=== PATIENT | male | born 1940 | race Caucasian/White ===

== ENCOUNTER 2019-06-30 10:35 | Outpatient (RCR) | payer MEDICARE, SELFPAY ==
[2019-04-06 10:31] LABS: INR 3.5; Prothrombin Time 36.4 Seconds (9.64-11.0)
[2019-04-26 11:46] LABS: INR 2.4; Prothrombin Time 25.1 Seconds (9.64-11.0)
[2019-05-28 10:17] LABS: INR 3.1; Prothrombin Time 32.6 Seconds (9.64-11.0)
[2019-06-30 10:53] LABS: INR 2.5; Prothrombin Time 24.8 Seconds (9.64-11.0)
== END 2019-07-05 23:59 | disposition home or self-care (01) ==
LOC: CHSLAB 10:35
PROVIDERS: PCP Internal Medicine; Visit Provider Internal Medicine
DX: I48.20 Chronic atrial fibrillation, unspecified (principal)
CPT/HCPCS: 36415; 85610

== ENCOUNTER 2019-07-30 09:23 | Outpatient (CLI) | payer MEDICARE, SELFPAY ==
[2019-07-30 09:37] LABS: Basophils Absolute Auto 0.01 K/mm3 (0.00-0.10); Basophils Percent Auto 0.2 % (0.0-1.0); Eosinophils Absolute Auto 0.13 K/mm3 (0.02-0.50); Eosinophils Percent Auto 2.6 % (1.0-6.0); Hematocrit 32.9 % (37.0-46.0); Hemoglobin 10.4 g/dL (12.4-15.3); Immature Granulocyte Absolute 0.06 K/mm3 (0.00-0.00); Immature Granulocyte Percent A 1.2 % (0.0-0.0); Lymphocytes Absolute Auto 0.66 K/mm3 (1.10-4.50); Lymphocytes Percent Auto 13.4 % (18.0-42.0); Mean Corpuscular HGB Conc 31.6 g/dL (32.0-36.0); Mean Corpuscular Hemoglobin 27.1 pg (27.0-31.0); Mean Corpuscular Volume 85.7 fL (78.0-102.0); Mean Platelet Volume 9.5 fl (8.7-11.0); Monocytes Absolute Auto 0.48 K/mm3 (0.10-0.90); Monocytes Percent Auto 9.7 % (2.0-11.0); Neutrophils Absolute Auto 3.6 K/mm3 (1.7-7.2); Neutrophils Percent Auto 72.9 % (50.0-70.0); Platelet Count Result 192 K/mm3 (150-420); Red Blood Count 3.84 M/mm3 (4.70-6.10); Red Cell Distribution Width 14.7 % (11.6-14.4); White Blood Count 4.9 K/mm3 (4.8-10.8)
[2019-07-30 09:45] LABS: INR 2.4; Prothrombin Time 23.7 Seconds (9.64-11.0)
[2019-07-30 09:52] LABS: Appearance Urine Clear (Clear); Bilirubin Urine Negative (Negative); Color Urine Yellow (Yellow); Glucose Urine UA Negative (Negative); Ketones Urine Negative (Negative); Leukocyte Esterase Ur Negative (Negative); Nitrate Urine Negative (Negative); Protein Urine Negative (Negative); Specific Grav Ur 1.025 (1.010-1.020); Urobilinogen Urine 0.2 mg/dL (0.2-1.0)
[2019-07-30 09:53] LABS: Hemoglobin A1C 8.4 % (<5.7)
[2019-07-30 10:02] LABS: Add Urine Microscopic? YES; Blood Urine Trace-Intact (Negative); RBC Urine 0-2 /hpf (0-2); Squamous Epithelial Cell Urine Occasional /hpf (Few); WBC Urine 0-3 /hpf (0-3)
[2019-07-30 10:03] LABS: Bacteria Urine 1+ /hpf; Mucus Urine Few /lpf
[2019-07-30 10:15] LABS: Alanine Aminotransferase 24 U/L (16-63); Albumin Level 3.6 g/dL (3.4-5.0); Alkaline Phosphatase 50 U/L (46-116); Anion Gap 10.3 mmol/L (7-16); Aspartate Amino Transferase 17 U/L (15-37); Bilirubin,Total 0.4 mg/dL (0.00-1.00); Blood Urea Nitrogen 18 mg/dL (7-18); Calcium 8.6 mg/dL (8.5-10.1); Carbon Dioxide 29 mmol/L (21-32); Chloride 104 mmol/L (98-108); Cholesterol 124 mg/dL (0-200); Estimated Glomerular Filt Rate > 60; Glucose 142 mg/dL (70-99); HDL Direct 46 mg/dL (40-60); LDL Cholesterol Calculated 55 mg/dL (<130); Osmolality Calculated 291 mOsm/kg (285-295); Potassium 4.3 mmol/L (3.5-5.1); Sodium 139 mmol/L (136-145); Thyroid Stimulating Hormone 1.95 uIU/mL (0.36-3.74); Triglycerides 114 mg/dL (0-150)
[2019-07-30 15:13] LABS: Ferritin 30 ng/mL (26-388); Iron 30 ug/dL (65-175); Lactate Dehydrogenase 147 U/L (85-227); Percent Iron Saturation 8 % (12-57)
[2019-08-02 08:43] LABS: Methylmalonic Acid 210 nmol/L (87-318)
[2019-08-03 06:13] LABS: Red Blood Cell Folate >1000 ng/mL RBC (>280)
== END 2019-07-30 09:24 | disposition home or self-care (01) ==
LOC: CHSLAB 09:25
PROVIDERS: PCP Internal Medicine; Visit Provider Internal Medicine
DX: I50.9 Heart failure, unspecified (principal); Z79.01 Long term (current) use of anticoagulants; E11.9 Type 2 diabetes mellitus without complications
CPT/HCPCS: 36415; 80053; 80061; 81001; 82728; 82747; 83036; 83540; 83550; 83615; 83921; 84443; 85025; 85610

== ENCOUNTER 2020-01-21 10:39 | Outpatient (RCR) | payer MEDICARE, SELFPAY ==
[2019-12-14 09:17] LABS: INR 3.7; Prothrombin Time 36.3 Seconds (9.64-11.0)
[2020-01-21 11:09] LABS: Prothrombin Time 69.1 Seconds (9.64-11.0)
[2020-01-21 11:14] LABS: INR 7.2
== END 2020-03-13 23:59 | disposition home or self-care (01) ==
LOC: CHSLAB 10:39
PROVIDERS: PCP Internal Medicine; Visit Provider Internal Medicine
DX: Z79.01 Long term (current) use of anticoagulants (principal)
CPT/HCPCS: 36415; 85610

== ENCOUNTER 2020-02-07 09:15 | Outpatient (CLI) | payer MEDICARE, SELFPAY ==
[2020-02-07 09:52] LABS: INR 3.2; Prothrombin Time 32.1 Seconds (9.64-11.0)
== END 2020-02-07 09:16 | disposition home or self-care (01) ==
LOC: CHSLAB 09:18
PROVIDERS: PCP Internal Medicine; Visit Provider Internal Medicine
DX: Z79.01 Long term (current) use of anticoagulants (principal)
CPT/HCPCS: 36415; 85610

== ENCOUNTER 2020-03-07 09:18 | Outpatient (CLI) | payer MEDICARE, SELFPAY ==
[2020-03-07 09:29] LABS: Basophils Absolute Auto 0.02 K/mm3 (0.00-0.10); Basophils Percent Auto 0.4 % (0.0-1.0); Eosinophils Absolute Auto 0.17 K/mm3 (0.02-0.50); Eosinophils Percent Auto 3.4 % (1.0-6.0); Hematocrit 31.3 % (37.0-46.0); Hemoglobin 9.4 g/dL (12.4-15.3); Immature Granulocyte Absolute 0.04 K/mm3 (0.00-0.00); Immature Granulocyte Percent A 0.8 % (0.0-0.0); Lymphocytes Absolute Auto 0.66 K/mm3 (1.10-4.50); Lymphocytes Percent Auto 13.3 % (18.0-42.0); Mean Corpuscular Hemoglobin 25.9 pg (27.0-31.0); Mean Corpuscular Volume 86.2 fL (78.0-102.0); Mean Platelet Volume 9.2 fl (8.7-11.0); Monocytes Absolute Auto 0.55 K/mm3 (0.10-0.90); Monocytes Percent Auto 11.1 % (2.0-11.0); Neutrophils Absolute Auto 3.5 K/mm3 (1.7-7.2); Platelet Count Result 185 K/mm3 (150-420); Red Blood Count 3.63 M/mm3 (4.70-6.10); Red Cell Distribution Width 15.3 % (11.6-14.4)
[2020-03-07 09:40] LABS: INR 2.7; Prothrombin Time 26.8 Seconds (9.64-11.0)
[2020-03-07 09:58] LABS: Hemoglobin A1C 7.7 % (<5.7)
[2020-03-07 10:34] LABS: Alanine Aminotransferase 23 U/L (16-63); Albumin Level 3.4 g/dL (3.4-5.0); Alkaline Phosphatase 60 U/L (46-116); Anion Gap 7 mmol/L (8-16); Aspartate Amino Transferase 15 U/L (15-37); Bilirubin,Total 0.4 mg/dL (0.00-1.00); Blood Urea Nitrogen 20 mg/dL (7-18); Calcium 8.5 mg/dL (8.5-10.1); Carbon Dioxide 29 mmol/L (21-32); Chloride 104 mmol/L (98-108); Estimated Glomerular Filt Rate > 60; Glucose 134 mg/dL (70-99); Osmolality Calculated 294 mOsm/kg (285-295); Potassium 4.4 mmol/L (3.5-5.1); Sodium 140 mmol/L (136-145); Total Protein 6.7 g/dL (6.4-8.2)
== END 2020-03-07 09:19 | disposition home or self-care (01) ==
LOC: CHSLAB 09:20
PROVIDERS: PCP Internal Medicine; Visit Provider Internal Medicine
DX: I48.91 Unspecified atrial fibrillation (principal); E11.9 Type 2 diabetes mellitus without complications; I10 Essential (primary) hypertension
CPT/HCPCS: 36415; 80053; 83036; 85025; 85610

== ENCOUNTER 2020-04-14 08:37 | Outpatient (CLI) | payer MEDICARE, SELFPAY ==
[2020-04-14 08:56] LABS: Basophils Absolute Auto 0.02 K/mm3 (0.00-0.10); Basophils Percent Auto 0.5 % (0.0-1.0); Eosinophils Absolute Auto 0.16 K/mm3 (0.02-0.50); Eosinophils Percent Auto 3.6 % (1.0-6.0); Hematocrit 31.7 % (37.0-46.0); Hemoglobin 9.5 g/dL (12.4-15.3); Immature Granulocyte Absolute 0.05 K/mm3 (0.00-0.00); Immature Granulocyte Percent A 1.1 % (0.0-0.0); Immature Reticulocyte Fraction 14.4 % (2.0-16.52); Lymphocytes Absolute Auto 0.63 K/mm3 (1.10-4.50); Lymphocytes Percent Auto 14.2 % (18.0-42.0); Mean Corpuscular Hemoglobin 25.5 pg (27.0-31.0); Monocytes Absolute Auto 0.39 K/mm3 (0.10-0.90); Monocytes Percent Auto 8.8 % (2.0-11.0); Neutrophils Absolute Auto 3.2 K/mm3 (1.7-7.2); Neutrophils Percent Auto 71.8 % (50.0-70.0); Platelet Count Result 198 K/mm3 (150-420); Red Blood Count 3.73 M/mm3 (4.70-6.10); Red Cell Distribution Width 15.6 % (11.6-14.4); Reticulocyte Hemoglobin Conten 29.8 pg (28.0-35.0); Reticulocyte Percent 1.24 % (0.50-1.50); Reticulocytes Absolute 0.05 M/mm3 (0.02-0.1); White Blood Count 4.4 K/mm3 (4.8-10.8)
[2020-04-14 09:08] LABS: INR 2.9; Partial Thromboplastin Time 39.4 SEC (22.3-31.6); Prothrombin Time 28.6 Seconds (9.64-11.0)
[2020-04-14 09:43] LABS: Ferritin 19 ng/mL (26-388); Iron 27 ug/dL (65-175); Percent Iron Saturation 8 % (12-57)
== END 2020-04-14 08:38 | disposition home or self-care (01) ==
LOC: CHSLAB 08:40
PROVIDERS: PCP Internal Medicine; Visit Provider Internal Medicine
DX: D64.9 Anemia, unspecified (principal); Z79.01 Long term (current) use of anticoagulants
CPT/HCPCS: 36415; 82728; 83540; 83550; 85025; 85046; 85610; 85730

== ENCOUNTER 2020-06-05 00:37 | Outpatient (CLI) | payer MEDICARE, SELFPAY ==
[2020-06-05 19:06] LABS: SARS-CoV-2 RNA PCR Negative
== END 2020-06-05 00:38 | disposition home or self-care (01) ==
LOC: ANHCOVIDDT 00:37
PROVIDERS: PCP Internal Medicine; Visit Provider Surgery
DX: Z01.812 Encounter for preprocedural laboratory examination (principal); Z20.822 Contact with and (suspected) exposure to COVID-19
CPT/HCPCS: C9803; U0003

== ENCOUNTER 2020-06-08 00:51 | Day surgery (SDC) | payer MEDICARE, SELFPAY ==
[2020-05-31 11:06] VITALS: BMI 32.5
[2020-06-08] MEDS: LACTATED RINGERS 1,000 ML 150 ML IV CONT (07:37)
[2020-06-08 07:45] VITALS: BP 132/61; PULSE 93; RESP 17; TEMP 36.5; O2SAT 98; BMI 32.1
[2020-06-08 07:45] LABS: Glucose Point of Care 145 (65-105)
[2020-06-08 07:52] LABS: Prothrombin Time 14.2 Seconds (11.1-14.7)
[2020-06-08 07:53] LABS: Partial Thromboplastin Time 28.3 SECONDS (22.3-36.8)
--- NOTE | 2020-06-08 08:10 | WPDANESEPPF ---
Anes - Initial Pre Proc Eval Procedure: Operation Date: 06/08/20 08:30 Proposed Procedures p Colonoscopy - Jay Coughlin DO Date/Time: 06/08/20 08:10 Surgeon: Jay Coughlin DO Pre Op Diagnosis: anemia Patient Data Age: 80 Gender: M Height: 5 ft 9 in Weight: 98.9 kg Last Vital Signs Temp 97.7 F 06/08/20 07:45 Pulse 93 06/08/20 07:45 Resp 17 06/08/20 07:45 BP 132/61 06/08/20 07:45 Pulse Ox 98 06/08/20 07:45 Allergies Allergy/AdvReac Type Severity Reaction Status Date / Time No Known Allergies Allergy Verified 05/31/20 11:06 Home Medications Medication Instructions Recorded Confirmed Type lisinopril 10 mg PO HS 05/31/20 06/08/20 History metformin 1,000 mg PO BID 05/31/20 06/08/20 History omeprazole 40 mg PO HS 05/31/20 06/08/20 History pravastatin 40 mg PO HS 05/31/20 06/08/20 History terazosin 4 mg PO HS 05/31/20 06/08/20 History warfarin 1 mg PO QPM 05/31/20 06/08/20 History warfarin 5 mg PO QPM 05/31/20 06/08/20 History Laboratory Tests 06/08/20 06/08/20 07:36 07:38 PT 14.2 Seconds Seconds (11.1-14.7) INR 1.0 APTT 28.3 SECONDS SECONDS (22.3-36.8) POC Capillary Glucose 145 mg/dl H mg/dl (65-105) Patient hx anesthesia problems: none Family hx anesthesia problems: none [facility] Past Medical History Medical History (Updated 06/08/20 @ 08:10 by Korey Ding MD) Diabetes GERD (gastroesophageal reflux disease) Hyperlipidemia Hypertension Social History Social History Smoking packs per day: 1 Smoking cigarettes per day: 20.0 Years smoked: 20 Smoking pack-years: 20.00 Smoking status: Heavy tobacco smoker Tobacco type: cigarettes Alcohol intake: never Substance use: never Substance use type: does not use Spiritual care concerns: No Anes - Eval Final PreProcedure Day of Procedure 06/08/20 08:10 Patient weight: obese Heart: regular rate and rhythm Lungs: clear to auscultation Airway: Mallampati scale Neurological: alert and oriented Last oral intake: >/= 8 hours ASA classification: III Emergent: no Anesthetic plan: proceed Anesthesia type and monitoring: general GIVS and standard monitoring Informed Consent: The patient's anesthetic plan and its attendant risks and benefits were discussed with the patient/family/POA. Questions were solicited and answers provided to the satisfaction of the patient/family/POA.
--- NOTE | 2020-06-08 08:19 | PM.IMHP ---
H&P: HPI History of Present Illness Date/Time: 06/08/20 08:19 Chief Complaint: anemia Narrative: Cayden Scott is a 80 year old male who presents for colonoscopy. He has never had one before. He is anemic but doesn't notice hematochezia or melena. Denies wt loss. He thinks his brother had colon cancer in his 60s. Review of Systems Review of Systems: All systems reviewed & are unremarkable except as noted in HPI and below Constitutional: Constitutional: Denies chills, Denies fever(s), Denies headache(s) and Denies weight loss Eyes: Eyes: Denies change in vision ENT: Denies dizziness, Denies headache(s), Denies neck mass and Denies throat swelling Cardiovascular: Cardiovascular: Denies chest pain, Denies lightheadedness and Denies dyspnea Respiratory: Respiratory: Denies cough, Denies dyspnea and Denies wheezing Gastrointestinal: Gastrointestinal: Denies abdominal pain, Denies change in bowel habits, Denies nausea and Denies vomiting Genitourinary: Genitourinary: Denies hematuria and Denies dysuria Musculoskeletal: Musculoskeletal: Reports as per HPI Integumentary/Breasts: Skin/Breast: Reports as per HPI Neurologic: Denies dizziness and Denies headache(s) Allergic/Immunologic: Allergic/Immunologic: Denies throat swelling and Denies wheezing PMFSH Past Medical History Medical History Diabetes GERD (gastroesophageal reflux disease) Hyperlipidemia Hypertension Social History Social History Smoking packs per day: 1 Smoking cigarettes per day: 20.0 Years smoked: 20 Smoking pack-years: 20.00 Smoking status: Heavy tobacco smoker Tobacco type: cigarettes Alcohol intake: never Substance use: never Substance use type: does not use Spiritual care concerns: No Meds Home Medications and Allergies Home Medications Medication Instructions Recorded Confirmed Type lisinopril 10 mg PO HS 05/31/20 06/08/20 History metformin 1,000 mg PO BID 05/31/20 06/08/20 History omeprazole 40 mg PO HS 05/31/20 06/08/20 History pravastatin 40 mg PO HS 05/31/20 06/08/20 History terazosin 4 mg PO HS 05/31/20 06/08/20 History warfarin 1 mg PO QPM 05/31/20 06/08/20 History warfarin 5 mg PO QPM 05/31/20 06/08/20 History Allergies Allergy/AdvReac Type Severity Reaction Status Date / Time No Known Allergies Allergy Verified 05/31/20 11:06 Vital Signs Vital Signs - 24 hr 06/08/20 07:45 Temperature 36.5 C Pulse Rate 93 Respiratory Rate 17 Blood Pressure 132/61 Pulse Oximetry 98 Exam Const: General: no acute distress and alert Orientation/consciousness: patient oriented x3 HENMT: Head: normocephalic and atraumatic Ears: hearing grossly normal bilaterally General nose exam: Normal nares present Mouth: Yes Normal oral and palatal mucosa present Eyes: Periorbital: periorbital findings normal Sclera: sclerae normal EOM: EOMs intact bilaterally Neck: Neck: normal visual inspection, no lymphadenopathy and trachea midline Chest: Chest palpation & inspection: normal inspection of the chest Resp: Effort & Inspection: normal respiratory effort Auscultation: clear to auscultation bilaterally Cardio: Jugular venous distension: no JVD Rate: regular rate Rhythm: regular rhythm Heart sounds: S1 normal heart sound present and S2 normal heart sound present Peripheral pulses: Peripheral pulses 2+ throughout GI: Inspection: normal to inspection GI Palp: Yes Soft to palpation, No Tenderness to palpation present (GI), No Guarding due to palpation present (GI) and No Rebound tenderness present Percussion: Yes normal to percussion Auscultation: normal bowel sounds : General: Yes no CVA tenderness Back/Spine/Pelvis: Back: no CVA tenderness Neuro: General: patient oriented x3, no focal motor deficits and CN's II-XI intact bilaterally Cognition (Neuro): normal cognition Speech: norm
[2020-06-08 09:13] VITALS: BP 113/68; PULSE 78; RESP 22; O2SAT 97
[2020-06-08 09:23] VITALS: BP 125/72; PULSE 94; RESP 25; O2SAT 98
[2020-06-08 09:33] VITALS: BP 123/91; PULSE 81; RESP 24; O2SAT 98
== END 2020-06-08 09:45 | disposition home or self-care (01) ==
PROVIDERS: PCP Internal Medicine; Visit Provider Surgery
PROC: 0DJD8ZZ Inspection of Lower Intestinal Tract, Via Natural or Artificial Opening Endoscopic (ICD-10-PCS; CPT 45378; principal; 2020-06-08 08:30)
DX: D50.9 Iron deficiency anemia, unspecified (principal); D12.5 Benign neoplasm of sigmoid colon; D12.3 Benign neoplasm of transverse colon; K63.5 Polyp of colon; K57.30 Diverticulosis of large intestine without perforation or abscess without bleeding; K64.8 Other hemorrhoids; I10 Essential (primary) hypertension; E78.5 Hyperlipidemia, unspecified; E11.9 Type 2 diabetes mellitus without complications; K21.9 Gastro-esophageal reflux disease without esophagitis; F17.210 Nicotine dependence, cigarettes, uncomplicated; Z79.01 Long term (current) use of anticoagulants; Z79.84 Long term (current) use of oral hypoglycemic drugs; E66.9 Obesity, unspecified; Z68.32 Body mass index [BMI] 32.0-32.9, adult
CPT/HCPCS: 45385; 36415; 85610; 85730; 88305; J2704; J7120

== ENCOUNTER 2020-07-14 08:25 | Outpatient (CLI) | payer MEDICARE, SELFPAY ==
[2020-07-14 08:48] LABS: Basophils Absolute Auto 0.01 K/mm3 (0.00-0.10); Basophils Percent Auto 0.3 % (0.0-1.0); Eosinophils Absolute Auto 0.14 K/mm3 (0.02-0.50); Eosinophils Percent Auto 3.5 % (1.0-6.0); Hematocrit 31.3 % (37.0-46.0); Hemoglobin 9.6 g/dL (12.4-15.3); Immature Granulocyte Absolute 0.03 K/mm3 (0.00-0.00); Immature Granulocyte Percent A 0.8 % (0.0-0.0); Lymphocytes Absolute Auto 0.53 K/mm3 (1.10-4.50); Lymphocytes Percent Auto 13.4 % (18.0-42.0); Mean Corpuscular HGB Conc 30.7 g/dL (32.0-36.0); Mean Corpuscular Hemoglobin 25.1 pg (27.0-31.0); Mean Corpuscular Volume 81.7 fL (78.0-102.0); Mean Platelet Volume 9.2 fl (8.7-11.0); Monocytes Absolute Auto 0.55 K/mm3 (0.10-0.90); Monocytes Percent Auto 13.9 % (2.0-11.0); Neutrophils Absolute Auto 2.7 K/mm3 (1.7-7.2); Neutrophils Percent Auto 68.1 % (50.0-70.0); Platelet Count Result 182 K/mm3 (150-420); Red Blood Count 3.83 M/mm3 (4.70-6.10); Red Cell Distribution Width 16.3 % (11.6-14.4)
[2020-07-14 09:01] LABS: INR 2.1; Prothrombin Time 21.8 Seconds (9.50-12.10)
[2020-07-14 09:38] LABS: Alanine Aminotransferase 32 U/L (16-63); Albumin Level 3.6 g/dL (3.4-5.0); Alkaline Phosphatase 59 U/L (46-116); Anion Gap 9 mmol/L (8-16); Aspartate Amino Transferase 19 U/L (15-37); Bilirubin,Total 0.4 mg/dL (0.00-1.00); Blood Urea Nitrogen 16 mg/dL (7-18); Calcium 8.7 mg/dL (8.5-10.1); Carbon Dioxide 27 mmol/L (21-32); Chloride 104 mmol/L (98-108); Estimated Glomerular Filt Rate > 60; Glucose 146 mg/dL (70-99); Osmolality Calculated 294 mOsm/kg (285-295); Potassium 4.2 mmol/L (3.5-5.1); Sodium 140 mmol/L (136-145); Total Protein 6.8 g/dL (6.4-8.2)
== END 2020-07-14 08:26 | disposition home or self-care (01) ==
PROVIDERS: PCP Internal Medicine; Visit Provider Internal Medicine
DX: Z79.01 Long term (current) use of anticoagulants (principal); I10 Essential (primary) hypertension
CPT/HCPCS: 36415; 80053; 85025; 85610

== ENCOUNTER 2020-08-07 08:49 | Outpatient (CLI) | payer MEDICARE, SELFPAY ==
[2020-08-07 09:00] LABS: Basophils Absolute Auto 0.01 K/mm3 (0.00-0.10); Basophils Percent Auto 0.2 % (0.0-1.0); Eosinophils Absolute Auto 0.22 K/mm3 (0.02-0.50); Eosinophils Percent Auto 4.4 % (1.0-6.0); Hemoglobin 9.7 g/dL (12.4-15.3); Immature Granulocyte Absolute 0.04 K/mm3 (0.00-0.00); Immature Granulocyte Percent A 0.8 % (0.0-0.0); Lymphocytes Absolute Auto 0.63 K/mm3 (1.10-4.50); Lymphocytes Percent Auto 12.6 % (18.0-42.0); Mean Corpuscular HGB Conc 30.3 g/dL (32.0-36.0); Mean Corpuscular Hemoglobin 25.7 pg (27.0-31.0); Mean Corpuscular Volume 84.9 fL (78.0-102.0); Mean Platelet Volume 9.3 fl (8.7-11.0); Monocytes Absolute Auto 0.54 K/mm3 (0.10-0.90); Monocytes Percent Auto 10.8 % (2.0-11.0); Neutrophils Absolute Auto 3.6 K/mm3 (1.7-7.2); Neutrophils Percent Auto 71.2 % (50.0-70.0); Platelet Count Result 192 K/mm3 (150-420); Red Blood Count 3.77 M/mm3 (4.70-6.10); Red Cell Distribution Width 16.8 % (11.6-14.4)
[2020-08-07 09:14] LABS: INR 2.6; Prothrombin Time 26.1 Seconds (9.50-12.10)
[2020-08-07 09:32] LABS: Hemoglobin A1C 7.8 % (<5.7)
[2020-08-07 09:47] LABS: Cholesterol 114 mg/dL (0-200); HDL Direct 40 mg/dL (40-60); LDL Cholesterol Calculated 53 mg/dL (<130); Triglycerides 107 mg/dL (0-150)
== END 2020-08-07 08:50 | disposition home or self-care (01) ==
LOC: CHSLAB 08:51
PROVIDERS: PCP Internal Medicine; Visit Provider Internal Medicine
DX: D64.9 Anemia, unspecified (principal); E11.9 Type 2 diabetes mellitus without complications; E78.5 Hyperlipidemia, unspecified; Z79.01 Long term (current) use of anticoagulants
CPT/HCPCS: 36415; 80061; 83036; 85025; 85610

== ENCOUNTER 2020-09-04 09:28 | Outpatient (CLI) | payer MEDICARE, SELFPAY ==
[2020-09-04 10:09] LABS: INR 1.5; Prothrombin Time 15.9 Seconds (9.50-12.10)
[2020-09-04 10:39] LABS: Hematocrit 32.4 % (37.0-46.0); Hemoglobin 9.9 g/dL (12.4-15.3)
== END 2020-09-04 09:29 | disposition home or self-care (01) ==
LOC: CHSLAB 09:29
PROVIDERS: PCP Internal Medicine; Visit Provider Internal Medicine
DX: I48.91 Unspecified atrial fibrillation (principal); D64.9 Anemia, unspecified
CPT/HCPCS: 36415; 85014; 85018; 85610

== ENCOUNTER 2020-12-01 08:36 | Outpatient (RCR) | payer MEDICARE, SELFPAY ==
[2020-09-25 09:38] LABS: Prothrombin Time 20.3 Seconds (9.50-12.10)
[2020-10-31 09:05] LABS: INR 1.8
[2020-12-01 09:01] LABS: INR 1.7; Prothrombin Time 17.7 Seconds (9.50-12.10)
== END 2020-12-24 23:59 | disposition home or self-care (01) ==
LOC: CHSLAB 08:36
PROVIDERS: PCP Internal Medicine; Visit Provider Internal Medicine
DX: I48.20 Chronic atrial fibrillation, unspecified (principal)
CPT/HCPCS: 36415; 85610

== ENCOUNTER 2021-01-26 09:44 | Outpatient (RCR) | payer MEDICARE, SELFPAY ==
[2020-12-27 09:13] LABS: INR 2.1; Prothrombin Time 21.4 Seconds (9.50-12.10)
[2021-01-26 10:08] LABS: INR 2.1; Prothrombin Time 21.6 Seconds (9.50-12.10)
== END 2021-03-27 23:59 | disposition home or self-care (01) ==
LOC: CHSLAB 09:44
PROVIDERS: PCP Internal Medicine; Visit Provider Internal Medicine
DX: I48.20 Chronic atrial fibrillation, unspecified (principal)
CPT/HCPCS: 36415; 85610

== ENCOUNTER 2021-03-05 08:25 | Outpatient (CLI) | payer MEDICARE, SELFPAY ==
[2021-03-05 08:38] LABS: Basophils Absolute Auto 0.03 K/mm3 (0.00-0.10); Basophils Percent Auto 0.6 % (0.0-1.0); Eosinophils Absolute Auto 0.18 K/mm3 (0.02-0.50); Eosinophils Percent Auto 3.4 % (1.0-6.0); Hematocrit 33.8 % (37.0-46.0); Immature Granulocyte Absolute 0.12 K/mm3 (0.00-0.00); Immature Granulocyte Percent A 2.2 % (0.0-0.0); Lymphocytes Absolute Auto 0.66 K/mm3 (1.10-4.50); Lymphocytes Percent Auto 12.3 % (18.0-42.0); Mean Corpuscular HGB Conc 32.5 g/dL (32.0-36.0); Mean Corpuscular Hemoglobin 29.8 pg (27.0-31.0); Mean Corpuscular Volume 91.6 fL (78.0-102.0); Monocytes Absolute Auto 0.52 K/mm3 (0.10-0.90); Monocytes Percent Auto 9.7 % (2.0-11.0); Neutrophils Absolute Auto 3.9 K/mm3 (1.7-7.2); Neutrophils Percent Auto 71.8 % (50.0-70.0); Platelet Count Result 178 K/mm3 (150-420); Red Blood Count 3.69 M/mm3 (4.70-6.10); Red Cell Distribution Width 13.8 % (11.6-14.4); White Blood Count 5.4 K/mm3 (4.8-10.8)
[2021-03-05 08:57] LABS: INR 1.8; Prothrombin Time 19.1 Seconds (9.50-12.10)
[2021-03-05 09:41] LABS: Alanine Aminotransferase 44 U/L (16-63); Albumin Level 3.5 g/dL (3.4-5.0); Alkaline Phosphatase 56 U/L (46-116); Anion Gap 9 mmol/L (8-16); Aspartate Amino Transferase 21 U/L (15-37); Bilirubin,Total 0.2 mg/dL (0.00-1.00); Blood Urea Nitrogen 22 mg/dL (7-18); Calcium 8.8 mg/dL (8.5-10.1); Carbon Dioxide 30 mmol/L (21-32); Chloride 104 mmol/L (98-108); Estimated Glomerular Filt Rate > 60; Glucose 144 mg/dL (70-99); NT Pro B Type Natriuretic Pept 740 pg/mL (0-450); Osmolality Calculated 302 mOsm/kg (285-295); Potassium 4.5 mmol/L (3.5-5.1); Sodium 143 mmol/L (136-145); Total Protein 6.5 g/dL (6.4-8.2)
== END 2021-03-05 08:26 | disposition home or self-care (01) ==
LOC: CHSLAB 08:30
PROVIDERS: PCP Internal Medicine; Visit Provider Internal Medicine
DX: D64.9 Anemia, unspecified (principal); I50.9 Heart failure, unspecified; Z79.01 Long term (current) use of anticoagulants; I48.20 Chronic atrial fibrillation, unspecified
CPT/HCPCS: 36415; 80053; 83880; 85025; 85610

== ENCOUNTER 2021-07-03 08:37 | Outpatient (RCR) | payer MEDICARE, SELFPAY ==
[2021-04-04 09:55] LABS: INR 1.7; Prothrombin Time 17.9 Seconds (9.50-12.10)
[2021-05-01 10:35] LABS: INR 2.1; Prothrombin Time 21.9 Seconds (9.50-12.10)
[2021-06-04 09:41] LABS: INR 1.7; Prothrombin Time 17.4 Seconds (9.50-12.10)
[2021-07-03 09:32] LABS: INR 2.1; Prothrombin Time 21.6 Seconds (9.50-12.10)
== END 2021-07-03 23:59 | disposition home or self-care (01) ==
LOC: CHSLAB 08:37
PROVIDERS: PCP Internal Medicine; Visit Provider Internal Medicine
DX: I48.20 Chronic atrial fibrillation, unspecified (principal)
CPT/HCPCS: 36415; 85610

== ENCOUNTER 2021-10-29 08:34 | Outpatient (RCR) | payer MEDICARE, SELFPAY ==
[2021-08-02 09:02] LABS: INR 1.6; Prothrombin Time 16.4 Seconds (9.50-12.10)
[2021-09-03 11:18] LABS: Prothrombin Time 20.5 Seconds (9.50-12.10)
[2021-10-08 10:12] LABS: INR 1.6
[2021-10-29 08:57] LABS: INR 2.5; Prothrombin Time 25.1 Seconds (9.50-12.10)
== END 2021-10-31 23:59 | disposition home or self-care (01) ==
LOC: CHSLAB 08:34
PROVIDERS: PCP Internal Medicine; Visit Provider Internal Medicine
DX: I48.20 Chronic atrial fibrillation, unspecified (principal); Z79.01 Long term (current) use of anticoagulants
CPT/HCPCS: 36415; 85610

== ENCOUNTER 2021-11-28 08:26 | Outpatient (CLI) | payer MEDICARE, SELFPAY ==
[2021-11-28 08:46] LABS: Add Urine Microscopic? NO; Appearance Urine Clear (Clear); Basophils Absolute Auto 0.02 K/mm3 (0.00-0.10); Basophils Percent Auto 0.4 % (0.0-1.0); Bilirubin Urine Negative (Negative); Blood Urine Negative (Negative); Color Urine Light Yellow (Yellow); Eosinophils Absolute Auto 0.17 K/mm3 (0.02-0.50); Eosinophils Percent Auto 3.2 % (1.0-6.0); Glucose Urine UA Negative (Negative); Hematocrit 30.6 % (37.0-46.0); Hemoglobin 9.7 g/dL (12.4-15.3); Immature Granulocyte Absolute 0.04 K/mm3 (0.00-0.00); Immature Granulocyte Percent A 0.8 % (0.0-0.0); Ketones Urine Negative (Negative); Leukocyte Esterase Ur Negative (Negative); Lymphocytes Absolute Auto 0.71 K/mm3 (1.10-4.50); Lymphocytes Percent Auto 13.5 % (18.0-42.0); Mean Corpuscular HGB Conc 31.7 g/dL (32.0-36.0); Mean Corpuscular Volume 91.6 fL (78.0-102.0); Mean Platelet Volume 9.5 fl (8.7-11.0); Monocytes Absolute Auto 0.53 K/mm3 (0.10-0.90); Monocytes Percent Auto 10.1 % (2.0-11.0); Neutrophils Absolute Auto 3.8 K/mm3 (1.7-7.2); Nitrate Urine Negative (Negative); Platelet Count Result 172 K/mm3 (150-420); Protein Urine Negative (Negative); Red Blood Count 3.34 M/mm3 (4.70-6.10); Red Cell Distribution Width 14.1 % (11.6-14.4); Specific Grav Ur 1.015 (1.010-1.020); Urobilinogen Urine 0.2 mg/dL (0.2-1.0); White Blood Count 5.3 K/mm3 (4.8-10.8); pH Urine 6.5 (5.0-8.0)
[2021-11-28 08:56] LABS: Hemoglobin A1C 7.9 % (<5.7)
[2021-11-28 09:00] LABS: INR 2.1; Prothrombin Time 21.6 Seconds (9.50-12.10)
[2021-11-28 09:18] LABS: Alanine Aminotransferase 22 U/L (16-63); Alkaline Phosphatase 82 U/L (46-116); Anion Gap 7 mmol/L (8-16); Aspartate Amino Transferase 10 U/L (15-37); Bilirubin,Total 0.4 mg/dL (0.00-1.00); Blood Urea Nitrogen 21 mg/dL (7-18); Carbon Dioxide 29 mmol/L (21-32); Chloride 103 mmol/L (98-108); Cholesterol 111 mg/dL (0-200); Estimated Glomerular Filt Rate 47; HDL Direct 39 mg/dL (40-60); LDL Cholesterol Calculated 49 mg/dL (<130); Potassium 4.3 mmol/L (3.5-5.1); Prostate Specific Antigen 0.4 ng/mL (< OR = 4.0); Sodium 139 mmol/L (136-145); Total Protein 7.8 g/dL (6.4-8.2); Triglycerides 117 mg/dL (0-150)
[2021-11-28 09:24] LABS: Albumin Level 3.4 g/dL (3.4-5.0); Calcium 8.9 mg/dL (8.5-10.1); Glucose 124 mg/dL (70-99); Osmolality Calculated 292 mOsm/kg (285-295)
== END 2021-11-28 08:27 | disposition home or self-care (01) ==
LOC: CHSLAB 08:27
PROVIDERS: PCP Internal Medicine; Visit Provider Internal Medicine
DX: E78.5 Hyperlipidemia, unspecified (principal); E11.9 Type 2 diabetes mellitus without complications; Z79.01 Long term (current) use of anticoagulants; I10 Essential (primary) hypertension; Z12.5 Encounter for screening for malignant neoplasm of prostate
CPT/HCPCS: 36415; 80053; 80061; 81003; 83036; 84153; 85025; 85610; G0103

== ENCOUNTER 2022-01-11 08:27 | Outpatient (CLI) | payer MEDICARE, SELFPAY ==
[2022-01-11 08:41] LABS: Basophils Absolute Auto 0.02 K/mm3 (0.00-0.10); Basophils Percent Auto 0.4 % (0.0-1.0); Eosinophils Absolute Auto 0.12 K/mm3 (0.02-0.50); Eosinophils Percent Auto 2.6 % (1.0-6.0); Hematocrit 30.1 % (37.0-46.0); Hemoglobin 9.5 g/dL (12.4-15.3); Immature Granulocyte Absolute 0.09 K/mm3 (0.00-0.00); Immature Granulocyte Percent A 1.9 % (0.0-0.0); Lymphocytes Absolute Auto 0.63 K/mm3 (1.10-4.50); Lymphocytes Percent Auto 13.5 % (18.0-42.0); Mean Corpuscular HGB Conc 31.6 g/dL (32.0-36.0); Mean Corpuscular Hemoglobin 28.4 pg (27.0-31.0); Mean Corpuscular Volume 89.9 fL (78.0-102.0); Mean Platelet Volume 9.2 fl (8.7-11.0); Monocytes Absolute Auto 0.52 K/mm3 (0.10-0.90); Monocytes Percent Auto 11.2 % (2.0-11.0); Neutrophils Absolute Auto 3.3 K/mm3 (1.7-7.2); Neutrophils Percent Auto 70.4 % (50.0-70.0); Platelet Count Result 191 K/mm3 (150-420); Red Blood Count 3.35 M/mm3 (4.70-6.10); White Blood Count 4.7 K/mm3 (4.8-10.8)
[2022-01-11 09:00] LABS: INR 2.8; Prothrombin Time 28.3 Seconds (9.50-12.10)
== END 2022-01-11 08:28 | disposition home or self-care (01) ==
LOC: CHSLAB 08:29
PROVIDERS: PCP Internal Medicine; Visit Provider Internal Medicine
DX: Z79.01 Long term (current) use of anticoagulants (principal); I10 Essential (primary) hypertension
CPT/HCPCS: 36415; 85025; 85610

== ENCOUNTER 2022-03-11 12:45 | Outpatient (RCR) | payer MEDICARE, SELFPAY ==
[2022-01-03 10:50] LABS: INR 1.6; Prothrombin Time 17.1 Seconds (9.50-12.10)
[2022-02-07 09:48] LABS: INR 2.3; Prothrombin Time 23.9 Seconds (9.50-12.10)
[2022-03-11 13:18] LABS: Prothrombin Time 21.2 Seconds (9.50-12.10)
== END 2022-04-03 23:59 | disposition home or self-care (01) ==
LOC: CHSLAB 12:45
PROVIDERS: PCP Internal Medicine; Visit Provider Internal Medicine
DX: Z79.01 Long term (current) use of anticoagulants (principal)
CPT/HCPCS: 36415; 85610

== ENCOUNTER 2022-07-10 09:20 | Outpatient (RCR) | payer MEDICARE, SELFPAY ==
[2022-04-11 09:44] LABS: INR 2.9; Prothrombin Time 29.5 Seconds (9.50-12.10)
[2022-05-07 11:31] LABS: Prothrombin Time 20.9 Seconds (9.50-12.10)
[2022-06-12 10:54] LABS: INR 1.9; Prothrombin Time 19.3 Seconds (9.50-12.10)
[2022-07-10 09:40] LABS: INR 1.7; Prothrombin Time 17.5 Seconds (9.50-12.10)
== END 2022-07-10 23:59 | disposition home or self-care (01) ==
LOC: CHSLAB 09:20
PROVIDERS: PCP Internal Medicine; Visit Provider Internal Medicine
DX: Z51.81 Encounter for therapeutic drug level monitoring (principal); Z79.01 Long term (current) use of anticoagulants
CPT/HCPCS: 36415; 85610

== ENCOUNTER 2022-09-04 09:08 | Outpatient (RCR) | payer MEDICARE, SELFPAY ==
[2022-08-05 09:44] LABS: INR 2.5; Prothrombin Time 25.1 Seconds (9.50-12.10)
== END 2022-11-03 23:59 | disposition home or self-care (01) ==
LOC: CHSLAB 09:08
PROVIDERS: PCP Internal Medicine; Visit Provider Internal Medicine
DX: Z51.81 Encounter for therapeutic drug level monitoring (principal); Z79.01 Long term (current) use of anticoagulants
CPT/HCPCS: 36415; 85610

== ENCOUNTER 2022-10-07 08:40 | Outpatient (CLI) | payer MEDICARE, SELFPAY ==
[2022-10-07 09:03] LABS: Basophils Absolute Auto 0.01 K/mm3 (0.00-0.10); Basophils Percent Auto 0.2 % (0.0-1.0); Eosinophils Absolute Auto 0.18 K/mm3 (0.02-0.50); Eosinophils Percent Auto 4.2 % (1.0-6.0); Hematocrit 31.6 % (37.0-46.0); Immature Granulocyte Absolute 0.05 K/mm3 (0.00-0.00); Immature Granulocyte Percent A 1.2 % (0.0-0.0); Lymphocytes Absolute Auto 0.68 K/mm3 (1.10-4.50); Mean Corpuscular HGB Conc 31.6 g/dL (32.0-36.0); Mean Corpuscular Hemoglobin 28.6 pg (27.0-31.0); Mean Corpuscular Volume 90.3 fL (78.0-102.0); Mean Platelet Volume 9.9 fl (8.7-11.0); Monocytes Absolute Auto 0.48 K/mm3 (0.10-0.90); Monocytes Percent Auto 11.3 % (2.0-11.0); Neutrophils Absolute Auto 2.9 K/mm3 (1.7-7.2); Neutrophils Percent Auto 67.1 % (50.0-70.0); Platelet Count Result 159 K/mm3 (150-420); Red Cell Distribution Width 13.8 % (11.6-14.4); White Blood Count 4.3 K/mm3 (4.8-10.8)
[2022-10-07 09:18] LABS: Hemoglobin A1C 7.5 % (<5.7)
[2022-10-07 09:39] LABS: Alanine Aminotransferase 21 U/L (16-63); Albumin Level 3.5 g/dL (3.4-5.0); Alkaline Phosphatase 52 U/L (46-116); Anion Gap 9 mmol/L (8-16); Aspartate Amino Transferase 16 U/L (15-37); Bilirubin,Total 0.4 mg/dL (0.00-1.00); Blood Urea Nitrogen 26 mg/dL (7-18); Calcium 8.5 mg/dL (8.5-10.1); Carbon Dioxide 28 mmol/L (21-32); Chloride 105 mmol/L (98-108); Estimated Glomerular Filt Rate 52; Ferritin 46 ng/mL (26-388); Glucose 110 mg/dL (70-99); Osmolality Calculated 299 mOsm/kg (285-295); Potassium 4.6 mmol/L (3.5-5.1); Sodium 142 mmol/L (136-145); Total Protein 6.5 g/dL (6.4-8.2)
[2022-10-07 10:01] LABS: CRP < 0.5 mg/dL (0.0-0.9)
[2022-10-07 10:05] LABS: INR 2.2
== END 2022-10-07 08:41 | disposition home or self-care (01) ==
LOC: CHSLAB 08:45
PROVIDERS: PCP Internal Medicine; Visit Provider Internal Medicine
DX: Z79.01 Long term (current) use of anticoagulants (principal); E11.9 Type 2 diabetes mellitus without complications; I10 Essential (primary) hypertension; D64.9 Anemia, unspecified
CPT/HCPCS: 36415; 80053; 82728; 83036; 85025; 85610; 86140

== ENCOUNTER 2023-02-11 10:26 | Outpatient (RCR) | payer MEDICARE, SELFPAY ==
[2023-01-13 08:56] LABS: INR 3.2; Prothrombin Time 31.9 Seconds (9.50-12.10)
[2023-02-11 10:50] LABS: INR 2.4; Prothrombin Time 24.4 Seconds (9.50-12.10)
== END 2023-03-13 23:59 | disposition home or self-care (01) ==
LOC: CHSLAB 10:26
PROVIDERS: PCP Internal Medicine; Visit Provider Internal Medicine
DX: I48.20 Chronic atrial fibrillation, unspecified (principal)
CPT/HCPCS: 36415; 85610

== ENCOUNTER 2023-04-15 08:28 | Outpatient (CLI) | payer MEDICARE, SELFPAY ==
[2023-04-15 08:51] LABS: Basophils Absolute Auto 0.02 K/mm3 (0.00-0.10); Basophils Percent Auto 0.5 % (0.0-1.0); Eosinophils Absolute Auto 0.18 K/mm3 (0.02-0.50); Eosinophils Percent Auto 4.2 % (1.0-6.0); Hematocrit 31.8 % (37.0-46.0); Immature Granulocyte Absolute 0.06 K/mm3 (0.00-0.00); Immature Granulocyte Percent A 1.4 % (0.0-0.0); Lymphocytes Absolute Auto 0.68 K/mm3 (1.10-4.50); Lymphocytes Percent Auto 15.9 % (18.0-42.0); Mean Corpuscular HGB Conc 31.4 g/dL (32.0-36.0); Mean Corpuscular Hemoglobin 28.2 pg (27.0-31.0); Mean Corpuscular Volume 89.6 fL (78.0-102.0); Mean Platelet Volume 9.6 fl (8.7-11.0); Monocytes Absolute Auto 0.47 K/mm3 (0.10-0.90); Neutrophils Absolute Auto 2.9 K/mm3 (1.7-7.2); Platelet Count Result 170 K/mm3 (150-420); Red Blood Count 3.55 M/mm3 (4.70-6.10); Red Cell Distribution Width 13.6 % (11.6-14.4); White Blood Count 4.3 K/mm3 (4.8-10.8)
[2023-04-15 08:53] LABS: Hemoglobin A1C 7.7 % (<5.7)
[2023-04-15 09:15] LABS: INR 2.7
[2023-04-15 10:02] LABS: Alanine Aminotransferase 21 U/L (16-63); Albumin Level 3.3 g/dL (3.4-5.0); Alkaline Phosphatase 52 U/L (46-116); Anion Gap 4 mmol/L (8-16); Bilirubin,Total 0.4 mg/dL (0.00-1.00); Blood Urea Nitrogen 28 mg/dL (7-18); Calcium 8.6 mg/dL (8.5-10.1); Carbon Dioxide 33 mmol/L (21-32); Chloride 103 mmol/L (98-108); Cholesterol 131 mg/dL (0-200); Estimated Glomerular Filt Rate 47; Glucose 110 mg/dL (70-99); HDL Direct 45 mg/dL (40-60); LDL Cholesterol Calculated 62 mg/dL (<130); Osmolality Calculated 296 mOsm/kg (285-295); Potassium 4.8 mmol/L (3.5-5.1); Sodium 140 mmol/L (136-145); Thyroid Stimulating Hormone 2.77 uIU/mL (0.36-3.74); Total Protein 6.5 g/dL (6.4-8.2); Triglycerides 119 mg/dL (0-150)
[2023-04-15 10:19] LABS: Aspartate Amino Transferase 18 U/L (15-37)
== END 2023-04-15 08:29 | disposition home or self-care (01) ==
LOC: CHSLAB 08:32
PROVIDERS: PCP Internal Medicine; Visit Provider Internal Medicine
DX: E11.9 Type 2 diabetes mellitus without complications (principal); E78.5 Hyperlipidemia, unspecified; I10 Essential (primary) hypertension; I48.20 Chronic atrial fibrillation, unspecified
CPT/HCPCS: 36415; 80053; 80061; 83036; 84443; 85025; 85610

== ENCOUNTER 2023-05-30 08:27 | Outpatient (RCR) | payer MEDICARE, SELFPAY ==
[2023-03-14 10:34] LABS: INR 3.2; Prothrombin Time 32.4 Seconds (9.50-12.10)
[2023-05-30 08:55] LABS: INR 2.3; Prothrombin Time 24.2 Seconds (9.50-12.10)
== END 2023-06-12 23:59 | disposition home or self-care (01) ==
LOC: CHSLAB 08:27
PROVIDERS: PCP Internal Medicine; Visit Provider Internal Medicine
DX: I48.20 Chronic atrial fibrillation, unspecified (principal)
CPT/HCPCS: 36415; 85610

== ENCOUNTER 2023-09-19 08:45 | Outpatient (RCR) | payer MEDICARE, SELFPAY ==
[2023-07-16 09:02] LABS: INR 2.2; Prothrombin Time 22.4 Seconds (9.50-12.10)
[2023-08-19 10:55] LABS: INR 1.9; Prothrombin Time 19.8 Seconds (9.50-12.1)
[2023-09-19 09:36] LABS: INR 2.4; Prothrombin Time 24.6 Seconds (9.50-12.1)
== END 2023-10-14 23:59 | disposition home or self-care (01) ==
LOC: CHSLAB 08:45
PROVIDERS: PCP Internal Medicine; Visit Provider Internal Medicine
DX: I48.20 Chronic atrial fibrillation, unspecified (principal)
CPT/HCPCS: 36415; 85610

== ENCOUNTER 2023-10-15 08:29 | Outpatient (CLI) | payer MEDICARE, SELFPAY ==
[2023-10-15 08:51] LABS: Basophils Absolute Auto 0.03 K/mm3 (0.00-0.10); Basophils Percent Auto 0.5 % (0.0-1.0); Eosinophils Absolute Auto 0.11 K/mm3 (0.02-0.50); Eosinophils Percent Auto 1.8 % (1.0-6.0); Hematocrit 30.1 % (37.0-46.0); Hemoglobin 9.5 g/dL (12.4-15.3); Immature Granulocyte Absolute 0.06 K/mm3 (0.00-0.00); Lymphocytes Absolute Auto 0.87 K/mm3 (1.10-4.50); Lymphocytes Percent Auto 14.1 % (18.0-42.0); Mean Corpuscular HGB Conc 31.6 g/dL (32-36); Mean Corpuscular Hemoglobin 27.4 pg (27.0-31.0); Mean Corpuscular Volume 86.7 fL (78.0-102.0); Mean Platelet Volume 9.3 fl (8.7-11.0); Monocytes Absolute Auto 0.87 K/mm3 (0.10-0.90); Monocytes Percent Auto 14.1 % (2.0-11.0); Neutrophils Absolute Auto 4.21 K/mm3 (1.70-7.20); Neutrophils Percent Auto 68.5 % (50.0-70.0); Platelet Count Result 140 K/mm3 (150-420); Red Blood Count 3.47 M/mm3 (4.70-6.10); Red Cell Distribution Width 14.2 % (11.6-14.4); White Blood Count 6.2 K/mm3 (4.8-10.8)
[2023-10-15 09:04] LABS: Hemoglobin A1C 7.1 % (<5.7)
[2023-10-15 09:25] LABS: Prothrombin Time 20.9 Seconds (9.50-12.1)
[2023-10-15 09:58] LABS: Alanine Aminotransferase 18 U/L (16-63); Albumin Level 3.3 g/dL (3.4-5.0); Alkaline Phosphatase 47 U/L (46-116); Anion Gap 6 mmol/L (4-12); Aspartate Amino Transferase 15 U/L (15-37); Bilirubin,Total 0.7 mg/dL (0.00-1.00); Blood Urea Nitrogen 21 mg/dL (7-18); Calcium 8.1 mg/dL (8.5-10.1); Carbon Dioxide 30 mmol/L (21-32); Chloride 100 mmol/L (98-108); Cholesterol 133 mg/dL (0-200); Estimated Glomerular Filt Rate 48; Glucose 121 mg/dL (70-99); HDL Direct 52 mg/dL (40-60); LDL Cholesterol Calculated 67 mg/dL (<130); Osmolality Calculated 286 mOsm/kg (285-295); Potassium 4.7 mmol/L (3.5-5.1); Sodium 136 mmol/L (136-145); Thyroid Stimulating Hormone 3.09 uIU/mL (0.36-3.74); Total Protein 6.4 g/dL (6.4-8.2); Triglycerides 71 mg/dL (0-150)
== END 2023-10-15 08:30 | disposition home or self-care (01) ==
LOC: CHSLAB 08:32
PROVIDERS: PCP Internal Medicine; Visit Provider Internal Medicine
DX: E11.9 Type 2 diabetes mellitus without complications (principal); E78.5 Hyperlipidemia, unspecified; I10 Essential (primary) hypertension; Z79.01 Long term (current) use of anticoagulants
CPT/HCPCS: 36415; 80053; 80061; 83036; 84443; 85025; 85610

== ENCOUNTER 2024-01-27 08:39 | Outpatient (RCR) | payer MEDICARE, SELFPAY ==
[2023-11-19 10:18] LABS: INR 1.5; Prothrombin Time 16.3 Seconds (9.50-12.1)
[2023-12-18 08:42] LABS: INR 1.9; Prothrombin Time 19.4 Seconds (9.50-12.1)
[2024-01-27 09:02] LABS: INR 2.7; Prothrombin Time 27.7 Seconds (9.50-12.1)
== END 2024-02-17 23:59 | disposition home or self-care (01) ==
LOC: CHSLAB 08:39
PROVIDERS: PCP Internal Medicine; Visit Provider Internal Medicine
DX: I48.20 Chronic atrial fibrillation, unspecified (principal)
CPT/HCPCS: 36415; 85610

== ENCOUNTER 2024-03-18 07:54 | Outpatient (CLI) | payer MEDICARE, SELFPAY ==
[2024-03-18 08:16] LABS: Add Urine Microscopic? NO; Appearance Urine Clear (Clear); Basophils Absolute Auto 0.01 K/mm3 (0.00-0.10); Basophils Percent Auto 0.2 % (0.0-1.0); Bilirubin Urine Negative (Negative); Blood Urine Trace-intact (Negative); Color Urine Light Yellow (Yellow); Eosinophils Absolute Auto 0.17 K/mm3 (0.02-0.50); Eosinophils Percent Auto 4.1 % (1.0-6.0); Glucose Urine UA Negative (Negative); Hematocrit 30.3 % (37.0-46.0); Hemoglobin 9.7 g/dL (12.4-15.3); Immature Granulocyte Absolute 0.06 K/mm3 (0.00-0.00); Immature Granulocyte Percent A 1.5 % (0.0-0.0); Ketones Urine Negative (Negative); Leukocyte Esterase Ur Negative (Negative); Lymphocytes Absolute Auto 0.74 K/mm3 (1.10-4.50); Mean Corpuscular Hemoglobin 28.4 pg (27.0-31.0); Mean Corpuscular Volume 88.6 fL (78.0-102.0); Mean Platelet Volume 9.1 fl (8.7-11.0); Monocytes Absolute Auto 0.48 K/mm3 (0.10-0.90); Monocytes Percent Auto 11.7 % (2.0-11.0); Neutrophils Absolute Auto 2.66 K/mm3 (1.70-7.20); Neutrophils Percent Auto 64.5 % (50.0-70.0); Nitrate Urine Negative (Negative); Platelet Count Result 165 K/mm3 (150-420); Protein Urine Negative (Negative); Red Blood Count 3.42 M/mm3 (4.70-6.10); Specific Grav Ur 1.015 (1.010-1.020); Urobilinogen Urine 0.2 mg/dL (0.2-1.0); White Blood Count 4.1 K/mm3 (4.8-10.8); pH Urine 5.5 (5.0-8.0)
[2024-03-18 08:30] LABS: INR 2.6; Partial Thromboplastin Time 42.9 Sec (23.9-30.70); Prothrombin Time 26.9 Seconds (9.50-12.1)
[2024-03-18 08:52] LABS: Hemoglobin A1C 7.2 % (<5.7)
[2024-03-18 08:54] LABS: Alanine Aminotransferase 33 U/L (16-63); Albumin Level 3.3 g/dL (3.4-5.0); Alkaline Phosphatase 54 U/L (46-116); Anion Gap 8 mmol/L (4-12); Aspartate Amino Transferase 16 U/L (15-37); Bilirubin,Total 0.3 mg/dL (0.00-1.00); Blood Urea Nitrogen 25 mg/dL (7-18); Calcium 8.8 mg/dL (8.5-10.1); Carbon Dioxide 30 mmol/L (21-32); Chloride 104 mmol/L (98-108); Cholesterol 136 mg/dL (0-200); Estimated Glomerular Filt Rate 57; Glucose 136 mg/dL (70-99); HDL Direct 46 mg/dL (40-60); LDL Cholesterol Calculated 68 mg/dL (<130); Osmolality Calculated 300 mOsm/kg (285-295); Potassium 4.7 mmol/L (3.5-5.1); Sodium 142 mmol/L (136-145); Total Protein 6.4 g/dL (6.4-8.2); Triglycerides 109 mg/dL (0-150)
== END 2024-03-18 07:55 | disposition home or self-care (01) ==
LOC: CHSLAB 07:59
PROVIDERS: PCP Internal Medicine; Visit Provider Internal Medicine
DX: I48.11 Longstanding persistent atrial fibrillation (principal); E11.9 Type 2 diabetes mellitus without complications; E78.5 Hyperlipidemia, unspecified; I10 Essential (primary) hypertension; I48.91 Unspecified atrial fibrillation
CPT/HCPCS: 36415; 80053; 80061; 81003; 83036; 85025; 85610; 85730

== ENCOUNTER 2024-04-26 09:08 | Outpatient (RCR) | payer MEDICARE, SELFPAY ==
[2024-02-20 10:36] LABS: INR 2.5; Partial Thromboplastin Time 37.9 Sec (23.9-30.70)
[2024-04-26 09:37] LABS: INR 2.7; Partial Thromboplastin Time 39.3 Sec (23.9-30.70); Prothrombin Time 27.3 Seconds (9.50-12.1)
== END 2024-05-20 23:59 | disposition home or self-care (01) ==
LOC: CHSLAB 09:08
PROVIDERS: PCP Internal Medicine; Visit Provider Internal Medicine
DX: I48.11 Longstanding persistent atrial fibrillation (principal)
CPT/HCPCS: 36415; 85610; 85730

== ENCOUNTER 2024-08-24 08:11 | Outpatient (RCR) | payer MEDICARE, SELFPAY ==
[2024-05-28 10:17] LABS: INR 3.8; Prothrombin Time 36.7 Seconds (9.50-12.1)
[2024-05-28 13:45] LABS: Partial Thromboplastin Time 60.1 Sec (23.9-30.70)
[2024-07-08 12:44] LABS: INR 1.7; Partial Thromboplastin Time 32.3 Sec (23.9-30.70); Prothrombin Time 17.5 Seconds (9.50-12.1)
[2024-08-24 08:43] LABS: INR 2.3; Partial Thromboplastin Time 38.8 Sec (23.9-30.70); Prothrombin Time 23.9 Seconds (9.50-12.1)
== END 2024-08-26 23:59 | disposition home or self-care (01) ==
LOC: CHSLAB 08:11
PROVIDERS: PCP Internal Medicine; Visit Provider Internal Medicine
DX: I48.11 Longstanding persistent atrial fibrillation (principal)
CPT/HCPCS: 36415; 85610; 85730

== ENCOUNTER 2024-10-07 08:01 | Outpatient (CLI) | payer MEDICARE, SELFPAY ==
--- OUTSIDE RECORDS SUMMARY | 2024-10-07 08:06 | XMS_ITS | Patient Health Record ---
Author Organization [facility] Address [address] [place], [place] [id number] Care Team Providers Care Community Director Name Role Phone RUFUS Denson Unavailable [phone] Carroll Christiansen Unavailable Unavailable MEMOISABELLE BENNETTUR Unavailable [phone] Allergies No Known Allergies Reason For Referral No Information Medications Medication SIG (Take, Route, Frequency, Duration) Notes Start Date End Date Status Pravastatin Sodium 40 MG TAKE 1 TABLET B Y MOUTH AT BEDTIME Oral for 90 Days Active metFORMIN HCl ER 500 MG TAKE TWO TABLETS BY MOUTH IN THE MORNING AND TAKE TWO TABLETS BY MOUTH AT BEDTIME Oral for 90 Days Active Terazosin HCl 5 MG TAKE 1 CAPSULE BY MO UTH ONCE DAILY AT BEDTIME Oral for 90 Days Active Omeprazole 40 MG Oral for 90 Days Active Lisinopril 10 MG Oral for 90 Days Active Warfarin Sodium 1 MG TAKE 2 TABLETS BY M OUTH ONCE DAILY Oral for 90 Days Acti ve Immunizations Vaccine Route Administration Date Status Comme nts Influenza, high dose seasonal Unknown 03/14/2023 Admini stered Plan Of Treatment No Information Insurance Providers Payer Name Payer Address Payer Phone Subscriber Number Group Number Insured Name Patient Relationship to Insured Coverage Start Date Coverage End Date Medicare Part B [place] [address] [place] [phone] [id number] GREGORIA SILVESTRE Self - patient is the insured [facility] ([facility]) ATTN CLAIMS [address] [place] [address] [id number] GREGORIA SILVESTRE Self - patient is the insured
--- OUTSIDE RECORDS SUMMARY | 2024-10-07 08:06 | XMS_ITS ---
Author Organization [facility] Address [address] [place], [place] [address] Care Team Providers Care Warp Tying Machine Tender Name Role Phone RUFUS Denson Unavailable [phone] Carroll Christiansen Unavailable Unavailable YONI CASAS Unavailable [phone] REASON FOR VISIT *General care Encounters Encounter Location Date Provider Diagnosis [address] [id number] 12/18/2023 YONI CASAS Plan Of Treatment No Information Progress Notes * GREGORIA SILVESTRE TDOB:[birth year] (84 yo M)Acc No.[id number]:12/18/2023 Patient: GREGORIA YAO Provider: Ivette CASAS :1940 A ge:83 Y S ex:Male Date:12/18/2023 Address:[address] [facility] [address] Subjective: * Chief Complaints: * 1 . *General care. * Medical History: Objective: * Vitals: Assessment: Plan: * Treatment: * Billing Information: * Visit Code: * Procedure Codes: * Electronic signature of PEGGY CASAS DPM on 10/07/2024 at 08:06 AM CDT Sign off status: Pending * Provider: Ivette CASAS Date: 0 12/18/2023 Generated for Printi ng/Faajg/eTransmitting on: 0 10/07/2024 08:06 AM CDT
--- OUTSIDE RECORDS SUMMARY | 2024-10-07 08:06 | XMS_ITS | Clinical Summary ---
Author Organization [facility] Address [facility] [place] [address] Care Team Providers Care Breastfeeding Program Coordinator Name Role Phone Unavailable Primary Care Provider Unavailabl e Social History Tobacco Use Types Packs/Day Years Used Date Smoking Tobacco: Former Sex and Gender Information Value Date Recorded Sex Assigned at Not on file Legal Sex Male 3:41 AM CDT Gender Identity Not on file Sexual Orientation Not on file Last Filed Vital Signs Vital Sign Reading Time Taken Comments Blood Pressure 118/70 12/20/2011 2:46 PM CDT Pulse 70 12/20/2011 2:46 PM CDT Temperature - - Respiratory Rate 18 12/20/2011 2:46 PM CDT Oxygen Saturation - - Inhaled Oxygen Concentration - - Weight 102.1 kg (225 lb) 12/20/2011 2:46 PM CDT Height 175.3 cm (5' 9 ) 12/20/2011 2:46 PM CDT Body Mass Index 33.23 12/20/2011 2:46 PM CDT Plan of Treatment Health Maintenance Due Date Last Done Comments DTaP, Tdap and Td Vaccines ( 1 - Tdap) 1958 Pneumococcal Vaccine: 50+ Ye ars (1 of 1 - PCV) 1989 Zoster Vaccines (1 of 2) 1989 RSV Immunization or 60+ Years (1 - 1-dose 75+ series) 2014 COVID-19 Vaccine ( - 2023-2 5 season) 2024 Meningococcal B Vaccine Aged Out No l onger eligible based on patient's age to complete this topic Meningococcal Vaccine Aged Out No jamie chante eligible based on patient's age to complete this topic RSV Immunizations Under 20 Months Aged Out No longer eligible based on patient's age to complete this topic
[2024-10-07 08:23] LABS: Hematocrit 29.4 % (37.0-46.0); Mean Corpuscular HGB Conc 30.6 g/dL (32-36); Mean Corpuscular Hemoglobin 26.9 pg (27.0-31.0); Mean Platelet Volume 9.3 fl (8.7-11.0); Platelet Count Result 161 K/mm3 (150-420); Red Blood Count 3.34 M/mm3 (4.70-6.10); Red Cell Distribution Width 13.6 % (11.6-14.4); White Blood Count 4.1 K/mm3 (4.8-10.8)
[2024-10-07 08:35] LABS: Hemoglobin A1C 7.1 % (<5.7)
[2024-10-07 09:10] LABS: Alanine Aminotransferase 16 U/L (6-50); Albumin Level 3.6 g/dL (3.5-5.1); Alkaline Phosphatase 59 U/L (38-126); Anion Gap 4 mmol/L (4-12); Aspartate Amino Transferase 22 U/L (17-59); Bilirubin,Total 0.3 mg/dL (0.2-1.3); Blood Urea Nitrogen 24 mg/dL (9-20); Calcium 8.5 mg/dL (8.4-10.2); Carbon Dioxide 27 mmol/L (22-30); Chloride 106 mmol/L (98-107); Estimated Glomerular Filt Rate 57; Glucose 116 mg/dL (65-110); Osmolality Calculated 289 mOsm/kg (285-295); Potassium 4.7 mmol/L (3.4-5.0); Sodium 137 mmol/L (137-145); Total Protein 6.1 g/dL (6.3-8.2)
== END 2024-10-07 08:02 | disposition home or self-care (01) ==
PROVIDERS: PCP Internal Medicine; Visit Provider Internal Medicine
DX: E11.9 Type 2 diabetes mellitus without complications (principal); Z79.01 Long term (current) use of anticoagulants
CPT/HCPCS: 36415; 80053; 83036; 85027

== ENCOUNTER 2024-10-26 12:13 | Outpatient (CLI) | payer MEDICARE, SELFPAY ==
--- OUTSIDE RECORDS SUMMARY | 2024-10-26 12:16 | XMS_ITS ---
Author Organization [facility] Address [address] [place], [place] [id number] Care Team Providers Care Engraver Automatic Name Role Phone RUFUS Denson Unavailable [phone] Carroll Christiansen Unavailable Unavailable YONI CASAS Unavailable [phone] REASON FOR VISIT *General care Encounters Encounter Location Date Provider Diagnosis [address] [id number] 12/18/2023 YONI CASAS Plan Of Treatment No Information Progress Notes * GREGORIA SILVESTRE TDOB:[birth year] (84 yo M)Acc No.[id number]:12/18/2023 Patient: GREGORIA YAO Provider: Ivette CASAS :1940 A ge:83 Y S ex:Male Date:12/18/2023 Address:[address] [facility] [id number] Subjective: * Chief Complaints: * 1 . *General care. * Medical History: Objective: * Vitals: Assessment: Plan: * Treatment: * Billing Information: * Visit Code: * Procedure Codes: * Electronic signature of PEGGY CASAS DPM on 10/26/2024 at 12:16 PM CDT Sign off status: Pending * Provider: Ivette CASAS Date: 0 12/18/2023 Generated for Printi ng/Faxing/eTransmitting on: 0 10/26/2024 12:16 PM CDT
--- OUTSIDE RECORDS SUMMARY | 2024-10-26 12:16 | XMS_ITS | Patient Health Record ---
Author Organization [facility] Address [address] [place], [place] [address] Care Team Providers Care Equipment Maintenance Superintendent Name Role Phone RUFUS Denson Unavailable [phone] Carroll Christiansen Unavailable Unavailable MEMOISABELLE BENNETTUR Unavailable [phone] Allergies No Known Allergies Reason For Referral [...] Date Coverage End Date Medicare Part B [place] [address] [place] [phone] [id number] GREGORIA SILVESTRE Self - patient is the insured [facility] ([facility]) ATTN CLAIMS [address] [place] [address] [id number] GREGORIA SILVESTRE Self - patient is the insured
[2024-10-26] MEDS: IRON SUCROSE COMPLEX 400 MG in SODIUM CHLORIDE 0.9% IV 250 ML 100 MG IVPB (12:30)
[2024-10-26 12:39] VITALS: BP 129/73; PULSE 88; RESP 16; TEMP 36.6; O2SAT 97; BMI 32.8
[2024-10-26 15:10] VITALS: BP 113/70; PULSE 80; RESP 16; O2SAT 98
--- NOTE | 2024-10-26 15:10 | PC.NURSE ---
Tolerated Venofer infusion well. SEE MAR/patient care notes.
== END 2024-10-26 12:14 | disposition home or self-care (01) ==
PROVIDERS: PCP Internal Medicine; Visit Provider Internal Medicine
DX: D50.9 Iron deficiency anemia, unspecified (principal)
CPT/HCPCS: 96365; 96366; J1756; J7050

== ENCOUNTER 2024-11-02 12:10 | Outpatient (CLI) | payer MEDICARE, SELFPAY ==
[2024-11-02 12:20] VITALS: BP 133/70; PULSE 74; RESP 16; TEMP 36.6; O2SAT 97
[2024-11-02] MEDS: SODIUM CHLORIDE 0.9% IVPB (12:30)
[2024-11-02] MEDS: IRON SUCROSE COMPLEX IVPB (12:30)
--- OUTSIDE RECORDS SUMMARY | 2024-11-02 13:08 | XMS_ITS | Patient Health Record ---
Author Organization [facility] Address [address] [place], [place] [address] Care Team Providers Care Medical Record Retrieval Specialist Name Role Phone RUFUS Denson Unavailable [phone] Carroll Christiansen Unavailable Unavailable MEMOISABELLE BENNETTUR Unavailable [phone] Allergies No Known Allergies Reason For Referral [...] [place] [address] [place] [address] [id number] GREGORIA SILVESTRE Self - patient is the insured [facility] ([facility]) ATTN CLAIMS [address] [place] [address] [id number] GREGORIA SILVESTRE Self - patient is the insured
--- OUTSIDE RECORDS SUMMARY | 2024-11-02 13:08 | XMS_ITS ---
Author Organization [facility] Address [address] [place], [place] [address] Care Team Providers Care Hydroelectric Powerplant Supervisor Name Role Phone RUFUS Denson Unavailable [phone] Carroll Christiansen Unavailable Unavailable YONI CASAS Unavailable [phone] REASON FOR VISIT *General care Encounters Encounter Location Date Provider Diagnosis [address] [id number] 12/18/2023 YONI CASAS Plan Of Treatment No Information Progress Notes * GREGORIA SILVESTRE TDOB:[birth year] (84 yo M)Acc No.[id number]:12/18/2023 Patient: GREGORIA YAO Provider: Ivette CASAS :1940 A ge:83 Y S ex:Male Date:12/18/2023 Address:[address] [facility] [address] Subjective: * Chief Complaints: * 1 . *General care. * Medical History: Objective: * Vitals: Assessment: Plan: * Treatment: * Billing Information: * Visit Code: * Procedure Codes: * Electronic signature of PEGGY CASAS DPM on 11/02/2024 at 01:07 PM CDT Sign off status: Pending * Provider: Ivette CASAS Date: 0 12/18/2023 Generated for Printi ng/Faajg/eTransmitting on: 0 11/02/2024 01:07 PM CDT
[2024-11-02 13:45] VITALS: BMI 32.8
[2024-11-02 15:02] VITALS: BP 129/69; PULSE 78; RESP 16
--- NOTE | 2024-11-02 15:02 | PC.NURSE ---
Tolerated #2 of 2 Venofer infusion well. SEE MAR/patient care list
== END 2024-11-02 12:11 | disposition home or self-care (01) ==
PROVIDERS: PCP Internal Medicine; Visit Provider Internal Medicine
DX: D50.9 Iron deficiency anemia, unspecified (principal)
CPT/HCPCS: 96365; 96366; J1756; J7050

== ENCOUNTER 2024-12-27 08:23 | Outpatient (RCR) | payer MEDICARE, SELFPAY ==
[2024-10-06 08:57] LABS: INR 2.7; Partial Thromboplastin Time 41.2 Sec (23.9-30.70); Prothrombin Time 27.2 Seconds (9.50-12.1)
[2024-12-27 08:53] LABS: INR 2.9; Partial Thromboplastin Time 42.1 Sec (23.9-30.70); Prothrombin Time 29.3 Seconds (9.50-12.1)
== END 2025-01-04 23:59 | disposition home or self-care (01) ==
LOC: CHSLAB 08:23
PROVIDERS: PCP Internal Medicine; Visit Provider Internal Medicine
DX: I48.11 Longstanding persistent atrial fibrillation (principal)
CPT/HCPCS: 36415; 85610; 85730

== ENCOUNTER 2025-02-14 08:21 | Outpatient (RCR) | payer MEDICARE, SELFPAY ==
[2025-02-14 09:20] LABS: INR 2.5; Prothrombin Time 25.4 Seconds (9.50-12.1)
== END 2025-05-15 23:59 | disposition home or self-care (01) ==
LOC: CHSLAB 08:21
PROVIDERS: PCP Internal Medicine; Visit Provider Internal Medicine
DX: Z51.81 Encounter for therapeutic drug level monitoring (principal); Z79.01 Long term (current) use of anticoagulants
CPT/HCPCS: 36415; 85610

== ENCOUNTER 2025-04-11 08:11 | Outpatient (CLI) | payer MEDICARE, SELFPAY ==
[2025-04-11 08:27] LABS: Hematocrit 29.4 % (37.0-46.0); Hemoglobin 9.1 g/dL (12.4-15.3); Mean Corpuscular HGB Conc 31.0 g/dL (32-36); Mean Corpuscular Hemoglobin 28.0 pg (27.0-31.0); Mean Corpuscular Volume 90.5 fL (78.0-102.0); Platelet Count Result 175 K/mm3 (150-420); Red Blood Count 3.25 M/mm3 (4.70-6.10); White Blood Count 4.4 K/mm3 (4.8-10.8)
[2025-04-11 08:28] LABS: Add Urine Microscopic? NO; Appearance Urine Clear (Clear); Glucose Urine UA Negative (Negative); Leukocyte Esterase Ur Negative (Negative); Nitrate Urine Negative (Negative); Specific Grav Ur 1.025 (1.010-1.020)
[2025-04-11 08:37] LABS: Hemoglobin A1C 6.4 % (<5.7)
[2025-04-11 08:46] LABS: INR 1.6; Prothrombin Time 16.5 Seconds (9.50-12.1)
[2025-04-11 09:16] LABS: Alanine Aminotransferase 11 U/L (6-50); Albumin Level 3.8 g/dL (3.5-5.1); Alkaline Phosphatase 67 U/L (38-126); Anion Gap 8 mmol/L (4-12); Aspartate Amino Transferase 18 U/L (17-59); Blood Urea Nitrogen 27 mg/dL (9-20); Calcium 8.8 mg/dL (8.4-10.2); Carbon Dioxide 29 mmol/L (22-30); Chloride 103 mmol/L (98-107); Cholesterol 112 mg/dL (0-200); Estimated Glomerular Filt Rate 52; Glucose 111 mg/dL (65-110); HDL Direct 44 mg/dL; Osmolality Calculated 296 mOsm/kg (285-295); Potassium 4.9 mmol/L (3.4-5.0); Sodium 140 mmol/L (137-145); Total Protein 6.3 g/dL (6.3-8.2); Triglycerides 73 mg/dL (<150)
[2025-04-11 17:31] LABS: Bilirubin,Total < 0.1 mg/dL (0.2-1.3)
== END 2025-04-11 08:12 | disposition home or self-care (01) ==
LOC: CHSLAB 08:13
PROVIDERS: PCP Internal Medicine; Visit Provider Internal Medicine
DX: E11.9 Type 2 diabetes mellitus without complications (principal); I10 Essential (primary) hypertension; E78.5 Hyperlipidemia, unspecified; Z79.01 Long term (current) use of anticoagulants
CPT/HCPCS: 36415; 80053; 80061; 81003; 83036; 85027; 85610